=== PATIENT | female | born 1960 | race Caucasian/White ===

== ENCOUNTER 2020-09-07 22:38 | Emergency (ER) | payer OTHER ==
[~2020-09-07] VITALS: Ht 170.2 cm; Wt 83.9 kg
[2020-09-07] MEDS ORDERED: LISINOPRIL10 MG PO (23:53)
== END 2020-09-08 00:06 | disposition home or self-care (01) ==
LOC: ED 22:38
DX: I10 Essential (primary) hypertension (principal)
CPT/HCPCS: 99283

== ENCOUNTER 2021-03-31 06:30 | Day surgery (SDC) | payer OTHER ==
[~2021-03-31] VITALS: Ht 170.2 cm; Wt 82.0 kg
[~2021-03-31 06:30] MED LIST: LISINOPRIL10 MG PO
[2021-03-31] MEDS ORDERED: LISINOPRIL-HCT1 EAC1 PO (06:46)
--- NOTE | 2021-03-31 08:49 | NUR ---
03/31/21 0849 Sharla Moore 0844- PT ARRIVES TO PACU AWAKE AND TALKING. PT REPORTS NO PAIN OR NAUSEA. PT ENCOURAGED TO PASS FLATUS IF ABD CRAMPING. PT STATES UNDERSTANDING. RESP EVEN AND UNLABORED. OXYGEN SAT HIGH 90'S TO 100% ON 2L VIA NC.
--- NOTE | 2021-04-02 12:44 | OR ---
[facility] [address], [place] [address] Signed DATE OF OPERATION: 03/31/2021 SURGEON: Flory Hidalgo MD PREOPERATIVE DIAGNOSIS: Colon screening. POSTOPERATIVE DIAGNOSIS: Normal colon to cecum. PROCEDURE: Total colonoscopy to cecum. ANESTHESIA: Intravenous sedation; fentanyl 200 mcg and Versed 7 mg. INDICATION: This 61-year-old white woman is a patient Dr. Nunez. She has been referred for screening colonoscopy. She has not undergone colonoscopy in the past. She has no symptoms of bleeding, diarrhea, or constipation. Has no family history of colon cancer. She did have hysterectomy in 2002 for benign disease (fibroids). The patient understands the risks of bleeding, infection, and perforation related to colonoscopy and wished to proceed. FINDINGS: The prep was adequate with irrigation. There was no solid stool, but a fair amount of murky fluid. Notably, her bowel prep did not kick in until late in the day yesterday. Complete colonoscopy was undertaken of the cecum. No passage through the colon was somewhat delayed due to tortuosity. The appendix inside the cecum was identified by characteristic landmarks as well as abdominal wall palpation. The entire colon was free of polyps and colitis. There were a few scattered diverticula of the sigmoid. DESCRIPTION OF PROCEDURE: The patient was brought to the surgical endoscopy suite and placed in lateral decubitus position, given intravenous sedation to the point of slurred speech and nystagmus. Digital rectal examination was normal. An Olympus video colonoscope was passed in the rectum and manipulated throughout the colon. Passage beyond the hepatic flexure required abdominal wall stabilization and other maneuvers, but ultimately was accomplished and the scope was advanced to the cecum. Ileocecal valve proper was seen, the appendiceal orifice not identified, however. Abdominal wall palpation confirmed the Electronically Signed By: FLORY HIDALGO MD 04/02/21 1244 PATIENT NAME: MIGUEL CHIU OPERATIVE REPORT DATE OF : 62 REPORT #: [id number] PHYSICIAN: FLORY HIDALGO MD PCP: SLIM NUNEZ MD REPORT IS CONFIDENTIAL AND NOT TO BE RELEASED WITHOUT AUTHORIZATION [facility] [address], [place] [address] Signed tip of the scope in the right lower quadrant. The scope was withdrawn from that point and examination throughout showed no sign of abnormality other than a few scattered diverticula of the sigmoid. The scope was removed and the patient was taken to the recovery room in good condition. CONCLUDING DIAGNOSIS: Normal colon. PLAN: Recommend repeat colonoscopy in 10 years, sooner if symptoms should occur. She will return to the ongoing care of Dr. Nunez. MD WILBERT Zelaya/MODL /[id number] cc: Dr. Nunez Copies: ~ Electronically Signed By: FLORY HIDALGO MD 04/02/21 1244 PATIENT NAME: MIGUEL CHIU OPERATIVE REPORT DATE OF : 62 REPORT #: [id number] PHYSICIAN: FLORY HIDALGO MD PCP: SLIM NUNEZ MD REPORT IS CONFIDENTIAL AND NOT TO BE RELEASED WITHOUT AUTHORIZATION
== END 2021-03-31 10:22 | disposition home or self-care (01) ==
LOC: DS 06:30 → OPS 06:30 → DS 06:45 → OPS 10:22
PROVIDERS: ATTEND Surgery
PROC: 0DJD8ZZ Inspection of Lower Intestinal Tract, Via Natural or Artificial Opening Endoscopic (ICD-10-PCS; principal; 2021-03-31 06:45)
DX: Z12.11 Encounter for screening for malignant neoplasm of colon (principal); K57.30 Diverticulosis of large intestine without perforation or abscess without bleeding; I10 Essential (primary) hypertension; Z90.711 Acquired absence of uterus with remaining cervical stump; Z87.891 Personal history of nicotine dependence
CPT/HCPCS: 99153; G0500; J2250; J2405; J3010; J7121